=== PATIENT | male | born 1965 | race American Indian/Alaskan Native ===

== ENCOUNTER → 2016-11-07 | Outpatient (CLI) | payer MEDICARE, OTHER ==
[~2016-11-07] MED LIST: AMBIEN10 M1 ORAL; ATIVAN1 MG ORAL; COGENTIN1 MG ORAL; PROPRANOLOL HCL10 MG ORAL; PROPRANOLOL HCL20 MG ORAL; TENORMIN25 MG ORAL; TRAZODONE HCL150 MG ORAL; ZYPREXA10 MG ORAL
--- NOTE | 2016-11-07 12:22 | Diagnostic Imaging Report ---
Indication: HTN Technique: 2 views of the chest Comparison: 08/25/2011. Findings: Lungs and pleural spaces are clear. Heart size is normal. Bones are unremarkable. No significant interim change Impression: No acute process
== END | disposition home or self-care (01) ==
LOC: RAD 10:04
DX: I10 Essential (primary) hypertension (principal)
CPT/HCPCS: 71020